=== PATIENT | female | born 1960 | race American Indian/Alaskan Native ===

== ENCOUNTER 2021-11-25 19:51 | Emergency (ER) | payer BC ==
[2021-11-25 20:07] VITALS: BP 170/75
[2021-11-25] MEDS ORDERED: ACETAMINOPHEN 500 MG TAB PO ONE (23:38)
[2021-11-25] MEDS ORDERED: IBUPROFEN 600 MG TAB PO ONE (23:38)
[2021-11-25] MEDS ORDERED: predniSONE 20 MG TAB PO ONE (23:38)
--- NOTE | 2021-11-25 23:49 | Emergency Department Report ---
ED Extremity Problem HPI - General Chief complaint: Extremity Injury, Lower Stated complaint: BOTH KNEE PAIN Source: patient Mode of arrival: Ambulatory Limitations: No Limitations - History of Present Illness Initial comments: Patient is a 61-year-old -[place] female with no past medical history who presents to the ED with complaint of acute onset persistent severe non traumatic bilateral knee pain for the last 3 days. Patient states that the pain is especially worse at rest and at night when she lays down to sleep and also in the morning when she tries to wake up. Patient states that the pain actually improves with movement at work. Patient states that her job entails being on her feet all day. Patient denies fall, traumatic injury, heavy lifting, chest pain or shortness of breath, fever, chills, nausea and vomiting, numbness and tingling or weakness of lower extremities bilaterally or back pain. MD Complaint: extremity pain (Bilateral knee pain), joint swelling (bilateral knee swelling), joint paint (Bilateral knees) -: Sudden, days(s) (3) Location: bilateral lower extremity (bilateral knee joints) History of Same: Yes -: Yes arthralgia, No fever, No associated dyspnea, No associated chest pain Radiation: none Severity scale (0 -10): 8 Quality: aching, sharp Consistency: constant Improves with: nothing, movement Worsens with: walking, rest Associated Symptoms: denies other symptoms, arthralgias. denies: chest pain, shortness of breath, fever, myalgias - Related Data Previous Rx's Medication Instructions Recorded Last Taken Type Naproxen 500 mg PO Q12H PRN #30 tab 11/25/21 Unknown Rx predniSONE [Deltasone] 60 mg PO QDAY #15 tab 11/25/21 Unknown Rx traMADoL [Ultram] 50 mg PO Q6HR PRN #12 tablet 11/25/21 Unknown Rx Allergies Allergy/AdvReac Type Severity Reaction Status Date / Time No Known Allergies Allergy Unverified 11/25/21 21:09 ED Review of Systems ROS: Stated complaint: BOTH KNEE PAIN Other details as noted in HPI Constitutional: denies: chills, fever Eyes: denies: eye pain, eye discharge, vision change ENT: denies: ear pain, throat pain Respiratory: denies: cough, shortness of breath, wheezing Cardiovascular: denies: chest pain, palpitations Endocrine: no symptoms reported Gastrointestinal: denies: abdominal pain, nausea, diarrhea Genitourinary: denies: urgency, dysuria, discharge Musculoskeletal: joint swelling (mild swelling of bilateral knee joints), arthralgia (bilateral knee joint pain). denies: back pain Skin: denies: rash, lesions Neurological: denies: headache, weakness, paresthesias Psychiatric: denies: anxiety, depression Hematological/Lymphatic: denies: easy bleeding, easy bruising ED Past Medical Hx - Past Medical History Previous Medical History?: No - Surgical History Past Surgical History?: No - Medications Home Medications: Home Medications Medication Instructions Recorded Confirmed Last Taken Type Naproxen 500 mg PO Q12H PRN #30 tab 11/25/21 Unknown Rx predniSONE [Deltasone] 60 mg PO QDAY #15 tab 11/25/21 Unknown Rx traMADoL [Ultram] 50 mg PO Q6HR PRN #12 tablet 11/25/21 Unknown Rx ED Physical Exam - General Limitations: No Limitations General appearance: alert, in no apparent distress - Head Head exam: Present: atraumatic, normocephalic, normal inspection - Eye Eye exam: Present: normal appearance, PERRL, EOMI Pupils: Present: normal accommodation - ENT ENT exam: Present: normal exam, normal orophraynx, mucous membranes moist, TM's normal bilaterally, normal external ear exam - Neck Neck exam: Present: normal inspection, full ROM - Respiratory Respiratory exam: Present: normal lung sounds bilaterally. Absent: respiratory distress, wheezes, rales, rhonchi, chest wall tenderness, decreased breath sounds, prolonged expiratory, other - Cardiovascular Cardiovascular Exam: Present: regular rate, normal rhythm, normal heart sounds. Absent: systolic murmur, diastolic murmur, rubs, gallop - GI/Abdominal GI/Abdominal exam: Present: soft, normal bowel sounds. Absent: tenderness, guarding, rebound, hyperactive bowel sounds, hypoactive bowel sounds, organomegaly - Extremities Exam Extremities exam: Present: normal inspection, full ROM, tenderness (Palpable bilateral knee joint tenderness with mild swelling), normal capillary refill, joint swelling. Absent: pedal edema, calf tenderness - Back Exam Back exam: Present: normal inspection, full ROM. Absent: tenderness, CVA tenderness (R), CVA tenderness (L), muscle spasm, paraspinal tenderness, vertebral tenderness - Neurological Exam Neurological exam: Present: alert, oriented X3, CN II-XII intact, normal gait, reflexes normal - Psychiatric Psychiatric exam: Present: normal affect, normal mood - Skin Skin exam: Present: warm, dry, intact, normal color. Absent: rash ED Course Vital Signs 11/25/21 20:06 Temperature 98.6 F Pulse Rate 86 Respiratory 18 Rate Blood Pressure 170/75 O2 Sat by Pulse 100 Oximetry ED Medical Decision Making - Medical Decision Making This is a 61-year-old -[place] female with no past medical history who presents to the ED with complaint of acute onset persistent severe nontraumatic bilateral knee pain for the last 3 days. Patient states that the pain is especially worse at rest and at night when she lays down to sleep and also in the morning when she tries to wake up. Patient states that the pain actually improves with movement at work. Patient states that her job entails being on her feet all day. In the ED, patient is alert and oriented x3 and is not in any distress. Patient was treated for pain in the ED and discharged home on pain medications and advised to follow-up with her primary care physician in 5 to 7 days for reevaluation return to the ED immediately if symptoms get worse. - Differential Diagnosis Tendinitis; osteoarthritis; muscle strain; bursitis Critical care attestation.: If time is entered above; I have spent that time in minutes in the direct care of this critically ill patient, excluding procedure time. ED Disposition Clinical Impression: Acute pain of both knees, Osteoarthritis of knee, unspecified, Tendinitis of both knees Disposition: 01 HOME / SELF CARE / HOMELESS Is pt being admited?: No Does the pt Need Aspirin: No Condition: Stable Instructions: Joint Pain, [id number], Acute Knee Pain, Adult, [id number], Osteoarthritis Additional Instructions: Take medication with food, drink plenty of fluids and follow-up with your primary care physician in 7 to 10 days for reevaluation. Return to the ED immediately if symptoms get worse. Prescriptions: predniSONE [Deltasone] 60 mg PO QDAY #15 tab Naproxen 500 mg PO Q12H PRN #30 tab PRN Reason: Pain , Severe (7-10) traMADoL [Ultram] 50 mg PO Q6HR PRN #12 tablet PRN Reason: Pain Referrals: [facility] [Provider Group] - 7-10 days Time of Disposition: 23:47 Print Language: CITIZEN OF [place]
== END 2021-11-26 00:19 | disposition home or self-care (01) ==
LOC: ED 19:51
DX: M25.562 Pain in left knee (principal); M25.561 Pain in right knee; M17.9 Osteoarthritis of knee, unspecified; M76.50 Patellar tendinitis, unspecified knee
CPT/HCPCS: 99282